=== PATIENT | female | born 1945 | race Caucasian/White ===

== ENCOUNTER 2017-09-29 12:10 | Emergency (ER) | payer MEDICARE, OTHER ==
[~2017-09-29] VITALS: Ht 162.6 cm; Wt 90.0 kg
[2017-09-29 12:20] VITALS: Ht 162.6 cm; Wt 90.0 kg
[2017-09-29] MEDS ORDERED: NICARDipine HCL 30 MG CAPSULE PO ONE (12:30)
--- NOTE | 2017-09-29 12:32 | ERD ---
ER Documentation Chief Complaint Chief Complaint GENIA MARTINEZ FROM [facility]. NOTED TO HAVE ELEVATED BP AT CENTER. HPI This is an extremely pleasant 71-year-old female Malian-speaking, internal controls manager use, history of hypertension with compliance of medications who presents with asymptomatic hypertension. The patient was at a daycare center where they regularly check her blood pressure. She states that her blood pressure is regularly elevated since her stroke earlier in the year. She states compliance with medications and her doctor has been moving and changing medications around. She denies any chest pain shortness of breath headaches slurred speech or motor weakness. She is in good spirits. The patient's blood pressure was over 200 therefore prompting EMS phone call and transferred to the emergency department. ROS All systems reviewed and are negative except as per history of present illness. Allergies Allergies: Coded Allergies: No Known Allergy (Unverified , 09/29/17) PMhx/Soc Hypertension, prior stroke FmHx Family History: No diabetes Physical Exam Vitals Vital Signs Date Time Temp Pulse Resp B/P Pulse Ox O2 Delivery O2 Flow Rate FiO2 09/29/17 13:00 66 18 196/87 99 Room Air 09/29/17 12:20 97.8 74 16 232/109 99 Physical Exam General: Well developed, well nourished, no acute distress Head: Normocephalic, atraumatic. Eyes: Pupils equally reactive, EOM intact ENT: Moist mucous membranes Neck: Supple, no lymphadenopathy Respiratory: Lungs clear bilaterally, no distress Cardiovascular: RRR, no murmurs, rubs, or gallops Abdominal: Soft, non-tender, non-distended, no peritoneal signs : Deferred MSK: No edema, no unilateral swelling, 5/5 strength Neurologic: Alert and oriented, moving all extremities, normal speech, no focal weakness, no cerebellar signs Skin: No rash Psych: Normal mood Results 24 hrs Current Medications Medications (Trade) Dose Ordered Sig/Guy Route PRN Reason Start Time Stop Time Status Last Admin Dose Admin Nicardipine HCl (Cardene) 30 mg ONCE ONCE PO 09/29/17 12:30 09/29/17 12:31 DC 09/29/17 12:29 Procedures/MDM Patient's blood pressure was elevated (>120/80) but appears stable without evidence of hypertensive emergency or urgency. The patient was counseled about the risks of hypertension and urged to pursue outpatient monitoring and therapy within a week with their primary care physician. The patient's blood pressure is significantly elevated and while she is grossly symptomatic I believe gradual lowering with oral medication would be reasonable. 30 mg of p.o. carding will be provided. The patient has no chest pain no headache no neurologic symptoms. I believe that providing the patient with rapidly lowering medication such as IV medications is contraindicated in the risks outweigh the benefits. It also appears that the facility and patient contacted her primary care physician and will be changing her medication. She receives this medication at home and will be to her home. The patient states that they have been dealing with difficult blood pressure management for some time. Given that the patient's blood pressure is trending down with treatment above. The patient is asymptomatic. Outpatient follow-up and discharge is appropriate. We discussed follow up with the patient's primary care doctor within 24 to 48 hours as needed. We also discussed return to the emergency room for worsening symptoms or worsening condition. Outpatient referral: Blood pressure medication changed by primary care physician Departure Diagnosis: Primary Impression: Asymptomatic hypertensive urgency Condition: Stable Patient Instructions: Hypertension, Established, Out Of Control Ref[facility]: [facility] Usted se gould hecho un examen mdico de control que le indica que no est en anne condicin que requiera tratamiento urgente en el Departamento de Emergencia. Un estudio ms profundo y el tratamiento de hopper condicin pueden esperar sin ningn riesgo hasta que usted sea atendida/o en el consultorio de hopper mdico o anne cl franchesca. Es responsabilidad suya arreglar anne sara para el seguimiento del abdulaziz. MANEJO DE CONDICIONES NO URGENTES EN EL FUTURO 1) Si usted tiene un mdico de atencin primaria: Usted debera llamar a hopper mdico de atencin primaria antes de venir al departamento de emergencia. Despus de las horas de consultorio, hopper doctor o hopper asociado/a est disponible por telfono. El mdico o enfermero de baldo en el servicio telefnico puede asesorarle por usaam medio para atender el problema, o abdulaziz contrario se puede programar anne sara. 2) Si usted no tiene un mdico de atencin primaria: Llame al mdico o clnica de referencia que aparece abajo lui las horas de consultorio para hacer anne sara para que le vean. CLINICAS: [facility] [phone] [facility] [phone] [facility] [phone] [facility] [phone] [facility] [phone] [address] [facility] [phone] [address] [facility] () Usted se gould hecho un examen mdico de control que le indica que no est en anne condicin que requiera tratamiento urgente en el Departamento de Emergencia. Un estudio ms profundo y el tratamiento de hopper condicin pueden esperar sin ningn riesgo hasta que usted sea atendida/o en el consultorio de hopper mdico o anne cl franchesca. Es responsabilidad suya arreglar anne sara para el seguimiento del abdulaziz. MANEJO DE CONDICIONES NO URGENTES EN EL FUTURO 1) Si usted tiene un mdico de atencin primaria: Usted debera llamar a hopper mdico de atencin primaria antes de venir al departamento de emergencia. Despus de las horas de consultorio, hopper doctor o hopper asociado/a est disponible por telfono. El mdico o enfermero de baldo en el servicio telefnico puede asesorarle por usama medio para atender el problema, o abdulaziz contrario se puede programar anne sara. 2) Si usted no tiene un mdico de atencin primaria: Llame al mdico o condado institucions de referencia que aparece abajo lui las horas de consultorio para hacer anne sara para que le vean. SI USTED NO PUEDE PAGAR PARA LOYDA UN MEDICO puede ir a: [facility] [address] [place] [address] [facility] [address] [place] [address] [facility] [address] [place] [address] [facility] [address] [place], [place] [id number] Additional Instructions: Llame al doctor nombrado abajo (Referral Sources) MAANA y rebecca anne SARA PARA DENTRO DE ANNE SEMANA. Dgale a la secretaria que nosotros le instruimos hacer esta sara.Avise o llame si hopper condicin se empeora antes de la sara. EARL KELLER MD Sep 29, 2017 12:32
[2017-09-29 13:00] VITALS: BP 196/87; PULSE 66; RESP 18
== END 2017-09-29 13:37 | disposition home or self-care (01) ==
LOC: E/R 12:10
DX: I16.0 Hypertensive urgency (principal); R40.2142 Coma scale, eyes open, spontaneous, at arrival to emergency department; R40.2252 Coma scale, best verbal response, oriented, at arrival to emergency department; R40.2362 Coma scale, best motor response, obeys commands, at arrival to emergency department
CPT/HCPCS: 99283